=== PATIENT | male | born 1995 | race African-American/Black ===

== ENCOUNTER 2021-06-27 11:31 | Emergency (ER) | payer SELFPAY ==
[2021-06-27] MEDS ORDERED: Acetaminophen 500 MG TAB ONE (12:12)
[2021-06-27] MEDS ORDERED: Boostrix 0.5 ML (Tdap) VIAL ONE (12:12)
== END 2021-06-27 13:05 | disposition home or self-care (01) ==
LOC: CSHERS 11:31
DX: S60.221A Contusion of right hand, initial encounter (principal); W22.8XXA Striking against or struck by other objects, initial encounter; Y99.0 Civilian activity done for income or pay
CPT/HCPCS: 29125; 90471; 90715